=== PATIENT | female | born 1955 | race African-American/Black ===

== ENCOUNTER → 2017-04-05 | Outpatient (CLI) | payer OTHER ==
[~2017-04-05] MED LIST: ALBUTEROL17 G1 IH; PREDNISONE50 MG PO; ZITHROMAX1 G/PKT PO
--- NOTE | ~2017-04-05 | MY11 ---
[facility] A Service of [facility] RADIOLOGY TEXT RESULTS PATIENT: CHATO CABALLERO LOCATION: [facility] : 55 UNIT #: [id number] AGE: [address]: Eddie Velazco MD SEX: F ORDER DR: [id number] [facility] [address] [place], [place] [address] [id number] O MR#: [id number] Acc #: [id number] NAME: CHATO CABALLERO : 1955 SEX: F STUDY DATE/TIME: 04/05/2017 10:26 UNIT: [facility] ROOM: STUDY DESCRIPTION: MY Mammogram Screening Dig Alexandr Attending Physician: Eddie Velazco M.D. Ordering Physician: Eddie Velazco M.D. Primary Care Physician: Eddie Velazco M.D. MEDICAL IMAGING REPORT This report is preliminary unless electronic signature is present EXAM Digital screening mammogram, 04/05/2017 HISTORY 61-year-old woman no risk elevation. Annual screening. COMPARISON Mammograms date to 04/26/2006 with most recent screening comparison 09/30/2015. FINDINGS Digital imaging of each breast was completed utilizing a two-view examination of each breast in craniocaudal and mediolateral-oblique projections. Review and interpretation of digital mammograms include a second review in conjunction with FDA-approved CAD device. There is a normal parenchymal presentation bilaterally consistent with the patient's age. There are no breast masses imaged and no parenchymal asymmetry is visualized. There are no suspicious microcalcifications and I see no focal architectural disturbance. IMPRESSION Negative screening digital mammogram. One-year followup recommended. Patients over the age of 40 are entered into a reminder system with target due date for the next mammogram. A result letter will also be sent to the patient. BIRADS: 1 Negative Dictated by... Jg Ortega M.D. THIS IS AN ELECTRONICALLY VERIFIED REPORT [facility] A Service [facility] RADIOLOGY TEXT RESULTS PATIENT: CHATO CABALLERO LOCATION: [facility] : 55 UNIT #: [id number] AGE: [address]: Eddie Velazco MD SEX: F ORDER DR: Jg Ortega M.D. at 04/05/2017 12:44 PM JAMIE/melisa TD: 04/05/2017 11:47 JOB #: [id number] MEDICAL IMAGING REPORT Page 1 of 1 COPY
== END | disposition home or self-care (01) ==
LOC: CWCC 10:17
DX: Z12.31 Encounter for screening mammogram for malignant neoplasm of breast (principal)
CPT/HCPCS: G0202